=== PATIENT | female | born 1975 | race Caucasian/White ===

== ENCOUNTER 2016-08-13 05:51 | Day surgery (SDC) | payer OTHER ==
[~2016-08-13] VITALS: Ht 162.6 cm; Wt 76.9 kg
[2016-08-13 06:38] VITALS: Ht 162.6 cm; Wt 76.9 kg
[2016-08-13] MEDS ORDERED: OMEP20CA16 PO (06:45)
[2016-08-13 07:25] VITALS: BP 117/60; PULSE 64; RESP 18
--- NOTE | 2016-08-13 07:42 | CONS ---
DATE OF ADMISSION: 08/13/2016 DATE OF CONSULTATION: REASON FOR CONSULTATION: Preoperative gastroenterology note. Dear Dr. Lo: I thank you very much for this kind referral. Ms. Leilani Samuels is a 41-year-old female patient, who has been referred to me for further evaluation of upper abdominal pain associated with bloating. She also has got chronic heartburn. There is no past history of peptic ulcer disease. She is not taking any nonsteroidal antiinflammatory agents. Her appetite has been good and she is not losing any weight. She had abdominal ultrasound done and it was negative. There is no history of gallstones. She does not have any fever, chills, or jaund ice. There is no history of liver disease. The patient gives history of constipation. There is no history of rectal bleeding. There is no past history of colon neoplasm. She is not a hypertensive or diabetic. She does not have any heart disease or lung problem. There is no history of kidney d isease. SOCIAL HISTORY: She is an occasional smoker. She does not abuse alcohol. FAMILY HISTORY: Negative for gastrointestinal tract neoplasm. ALLERGIES: THERE IS NO HISTORY OF SIGNIFICANT DRUG ALLERGY. MEDICATIONS: None. PHYSICAL EXAMINATION VITAL SIGNS: She is 5 feet 5 inches tall and she weighs 167 pounds. HEART: Examination of the heart reveals normal first and second heart sounds. LUNGS: Clear. ABDOMEN: Soft without any distention. Liver and spleen are not palpable. There are no masses. Th ere is no focal tenderness. Normal bowel sounds are heard. CENTRAL NERVOUS SYSTEM: Does not reveal any focal neurological deficit. IMPRESSION: 1. Upper abdominal pain associated with bloating. 2. Chronic heartburn, not responding to therapy. 3. The patient had abdominal ultrasound and it was normal. 4. Constipation. 5. The patient is a smoker. PLAN: 1. The patient was advised to stop smoking. 2. Omeprazole 40 mg p.o. q.a.m. 3. MiraLAX 17 grams dissolved in a glass of water p.o. daily for constipation. 4. Endoscopic examination for further evaluation. The procedure and possible complications are well explained to the patient. She understands and con sents to the procedure. I thank you once again. With warmest personal regards, Dictated By: DAXA ROCHA/ADEBAYO Conf#: [id number] DID#: [id number]
[2016-08-13] MEDS ORDERED: FENTAnyl 50 MCG/ML VIAL ONE (07:51)
[2016-08-13] MEDS ORDERED: MIDAZOLAM 1 MG/ML 2 ML INJ ONE ×2 (07:51→07:52)
[2016-08-13 08:05] VITALS: BP 126/70; PULSE 64; RESP 18
--- NOTE | 2016-08-13 23:32 | GILP ---
DATE OF PROCEDURE: NAME OF PROCEDURE: Esophagogastroduodenoscopy and biopsy. SURGEON: Daxa Kline MD PREOPERATIVE DIAGNOSES: 1. Abdominal pain. 2. Chronic heartburn. POSTOPERATIVE DIAGNOSES: 1. Hiatal hernia. 2. Reflux esophagitis. 3. Gastritis. 4. Gastric mucosal biopsies were taken for Helicobacter pylori test. INDICATION FOR THE PROCEDURE: Ms. Leilani Samuels is a 41-year-old female patient who had upper abdomi nal pain and chronic heartburn, not responding to therapy. The patient was scheduled for endoscopic examination for further evaluation. The procedure and possible complications are well explained to the patient. The patient understood and consented to the procedure. DESCRIPTION OF PROCEDURE: Under the influence of fentanyl and Versed, the gastroscope was carefully introduced into the esophagus. Under direct vision, it was advanced to the stomach and through the pylorus into the duodenal bulb and descending duodenum. FINDINGS: ESOPHAGUS: The patient had hiatal hernia and reflux esophagitis. STOMACH: She had gastritis with erosions. Gastric mucosal biopsies were taken for H. pylori test. DUODENUM: Normal. She tolerated the procedure very well and there was no complication from the procedure. At the end of the procedure, she was awake with stable vital signs and she was discharged home to the care of h family. IMPRESSION: 1. Hiatal hernia. 2. Reflux esophagitis. 3. Gastritis with erosions. 4. Gastric mucosal biopsies were taken for Helicobacter pylori test. PLAN: 1. Continue omeprazole. 2. Add Zantac 300 mg p.o. at bedtime. 3. Await H. pylori test report. Dictated By: DAXA ROCHA/ADEBAYO Conf#: [id number] DID#: [id number] CC: DAXA KLINE MD;*EndCC*
== END 2016-08-13 13:26 | disposition home or self-care (01) ==
LOC: GIL 05:51
PROVIDERS: ATTEND Internal Medicine Gastroenterology
DX: K44.9 Diaphragmatic hernia without obstruction or gangrene (principal); K21.0 Gastro-esophageal reflux disease with esophagitis; K29.70 Gastritis, unspecified, without bleeding; B96.81 Helicobacter pylori [H. pylori] as the cause of diseases classified elsewhere; F17.200 Nicotine dependence, unspecified, uncomplicated
CPT/HCPCS: 43239; 84703; 87081; J2250; J3010; Z7610